=== PATIENT | male | born 1980 | race Caucasian/White ===

== ENCOUNTER → 2017-05-30 | Outpatient (CLI) | payer MEDICAID ==
[~2017-05-30] MED LIST: ALBUTEROL-200 PUFFS/ IH; AMOXIL500 MG PO; BACTRIM DS 8001 TA1 PO; BACTRIM DS 8001 TAB PO; DICYCLOMINE HYD20 MG PO; HYDROCODONE1 TABLET PO; IBU800 MG PO; NAPROSYN 500MG500 MG PO; NOMEDS *; ULTRAM 50 MG TA50 MG PO; ULTRAM50 MG PO; VOLTAREN75 MG PO
== END ==
LOC: LAB 09:51
DX: M75.41 Impingement syndrome of right shoulder (principal); Z01.810 Encounter for preprocedural cardiovascular examination; Z01.811 Encounter for preprocedural respiratory examination; Z01.812 Encounter for preprocedural laboratory examination

== ENCOUNTER 2017-06-09 06:02 | Day surgery (SDC) | payer MEDICAID ==
[2017-05-30 10:33] LABS: HEMOGLOBIN 13.8 g/dL (14.1-18.0); LYMPH # 3.2 K/mm3 (0.7-4.5); LYMPH % 42.2 % (10-50)
[2017-05-30 11:36] LABS: BUN 9 mg/dL (7-18)
[2017-05-30 11:37] LABS: GFR (ESTIMATED) 95 ML/MIN (>60)
[~2017-06-09] VITALS: Ht 180.3 cm; Wt 104.8 kg
--- NOTE | 2017-06-09 10:07 | Anesthesia Record ---
Anesthesia Record Part I Total IV fluids: 650 EBL (ml): 10 Urine Output: 300 Units of blood given: 0 B/P: 144/91 % SaO2: 97 Pulse: 93 Resps: 10 Temp: 97.2 Patient is: Awake, Stable Stable to PACU at: 1000 at 1007
--- NOTE | 2017-06-09 10:07 | Anesthesia Record ---
Anesthesia Record Part I Total IV fluids: 650 EBL (ml): 10 Urine Output: 300 Units of blood given: 0 B/P: 144/91 % SaO2: 97 Pulse: 93 Resps: 10 Temp: 97.2 Patient is: Awake, Stable Stable to PACU at: 1000 at 1007
--- NOTE | 2017-06-09 10:08 | Anesthesia Record ---
Anesthesia Record Part II Discharge time: 1030 Destination: Same day surgery PACU nurse assessment review? Yes Patient is: Awake, Stable Anesthesia complications? No at 1007
--- NOTE | 2017-06-09 12:29 | Operative Note ---
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 anesthesia plus regional block Indications: 36-year-old male with osteoarthritis of the distal clavicle and subacromial impingement has failed to respond to continued conservative therapy. Operative intervention consisting of the above procedures is medically warranted and considered standard of care Findings: Under anesthesia the shoulder was stable. Arthroscopic evaluation of the glenohumeral joint showed the biceps tendon and the subscapularis and remainder of the rotator cuff to be intact. There was no evidence of a SLAP tear. The labrum appeared somewhat redundant anteriorly however probing with a spinal needle showed no evidence of a tear. The labrum was stable circumferentially. The inferior glenohumeral ligament was unremarkable. The superior and middle glenohumeral ligaments were unremarkable as well. The posterior inferior glenohumeral ligament was not well visualized. No evident rotator cuff tear was noted from the glenohumeral side In the subacromial space, there was advanced osteoarthritis of the acromioclavicular joint and osteophyte formation/bone spurs noted. No evident rotator cuff tear was noted from the bursal side. Description of procedure: The patient was taken to the operating room given a general anesthetic after a block had been applied in the preoperative area. He was placed in the beachchair position and all bony prominences well padded. We ensured appropriate orientation of the head and neck. The RIGHT shoulder was prepped in the usual sterile fashion. We then palpated and rachelle out bony landmarks and injected the glenohumeral joint with approximately 30 mL of arthroscopic fluid. We created a posterior portal, introduced a 4 mm arthroscope, and began the examination of the glenohumeral joint. A spinal needle was introduced anteriorly to probe the anterior labrum and document that there was no evident Bankart lesion. After completion of the glenohumeral arthroscopy, the arthroscope was brought into the subacromial space. An anterolateral portal was made after locating an ideal position with the spinal needle. We then introduced the radiofrequency wand and resected bursa to increase visualization. We also used a shaver. Once the subacromial bone was exposed, we completed a subacromial decompression rounding the anterolateral corner as well as the anterior edge and the lateral edge of the acromion. Approximately 3-4 mm of bone was removed from the undersurface of the acromion. We then moved the scope medially and viewed the AC joint itself. Radiofrequency wand was used to ablate the capsule inferiorly and anteriorly. We then used a 4mm and also a 5mm rotary bur to resect the distal clavicle. We created an anterior portal to allow direct access. Viewing from the anterior portal we noted some persistence of bone at the posterior and superior aspect of the clavicle and ensured this was resected as well and photographed this for documentation. We placed a marking pen in the joint to document the 1 cm space created as this was the diameter of the marking pen. We then evacuated any bits and pieces of loose tissue created by the procedure and removed excess fluid and arthroscopic equipment. Portals were closed, dressings applied, and the patient transported to the recovery room in satisfactory condition. EBL (ml): 1 Complications: None at 0816
[2017-06-09 13:04] VITALS: BP 148/86
[2017-06-09 16:50] LABS: URINE BILIRUBIN - DIPSTICK NEGATIVE (NEG); URINE BLOOD NEGATIVE (NEG)
--- NOTE | 2017-06-09 20:18 | RADIOLOGY REPORT PS360 ---
[id number] VIEW COMP.-RT HISTORY: RT CLAVICLE RESECTION AND SUBACROMIAL DECOMPRESSION Patient Age: 36 years: Male Ordering Physician: Tarik Terry MD TECHNIQUE: 2 view Y view and is anchored view right shoulder COMPARISON :Previous right shoulder 3 view June 2015. FINDINGS Glenohumeral relationships appear normal. Generous AC joint but within normal limits with minor mild AC joint arthropathy changes. The limited visualized portions right lung apex, upper chest & distal right clavicle appears intact. IMPRESSION: Glenohumeral joint is intact. Mild AC joint arthropathy &, hypertrophy
== END 2017-06-09 11:15 | disposition home or self-care (01) ==
LOC: SDC 06:02
PROVIDERS: Orthopaedic Surgery
PROC: 0RBJ4ZZ Excision of Right Shoulder Joint, Percutaneous Endoscopic Approach (ICD-10-PCS; principal; 2017-06-09)
DX: M19.011 Primary osteoarthritis, right shoulder (principal); M75.41 Impingement syndrome of right shoulder